=== PATIENT | male | born 1995 | race African-American/Black ===

== ENCOUNTER 2023-12-18 20:33 | Emergency (ER) | payer SELFPAY ==
[2023-12-18 20:36] VITALS: BP 113/65; PULSE 107; RESP 18; TEMP 37.6; O2SAT 100
--- NOTE | 2023-12-18 20:40 | ECG_ITS ---
Measurements Intervals [place] Rate: 104 P: 75 FL: 100 QRS: 60 QRSD: 78 T: 31 QT: 296 QTc: 391 Interpretive Statements SINUS TACHYCARDIA WITH SHORT [place] INTERVAL POSSIBLE RIGHT ATRIAL ENLARGEMENT LEFT ATRIAL ENLARGEMENT BORDERLINE ECG NO PREVIOUS ECG AVAILABLE FOR COMPARISON Electronically Signed On 12-19-2023 7:57:25 C4 PLANNER by Chele Powell D.O.
[2023-12-18 21:30] LABS: Influenza A QL RT-PCR Positive (Negative); Influenza B QL RT-PCR Negative (Negative); SARS-CoV-2 RNA PCR Negative (Negative)
--- NOTE | 2023-12-19 01:54 | PC.NURSE ---
Patient and his come to desk to state we're just going to go home. Patient and his informed of risks of leaving before being seen by a provider and benefits of staying to be evaluated. Patient and his a/ox4, verbalized understanding. Patient and his ambulated out of the ED with a steady gait with belongings in hand.
== END 2023-12-19 01:55 | disposition left against medical advice (07) ==
LOC: ANHED 12-19 02:00
PROVIDERS: Emergency Medicine
DX: R06.02 Shortness of breath (principal); Z20.822 Contact with and (suspected) exposure to COVID-19
CPT/HCPCS: 87636; 93005; 99199